=== PATIENT | female | born 1945 | race Caucasian/White ===

== ENCOUNTER 2019-07-15 12:13 | Inpatient (IN) | payer MEDICARE, BC ==
[2019-07-15] MEDS ORDERED: Sodium Chloride 0.9% 10 ML Syringe FLUSH PRN (14:07)
[2019-07-15] MEDS: cefTRIAXone 1 GM in Sodium Chloride 0.9% 50 ML IV SCH (14:21)
--- NOTE | 2019-07-15 14:29 | PCM.HP ---
H&P History of Present Illness - General Date of Service: 07/15/19 Admit Problem/Dx: Admission Diagnosis/Problem Admission Diagnosis/Problem Pneumonia Source of Information: Patient, Provider - History of Present Illness Initial Comments - Free Text/Narative: 74-year-old lady with a history of hypertension, dyslipidemia, rheumatoid arthritis, depression. Developed subjective fever, chills, nonproductive cough about a week ago. He was seen by Dr. Pradhan on 14 July and was noted to have atrial fibrillation with a rapid ventricular rate in the 110. Her propranolol 160 mg was changed to metoprolol XL 150 mg. That she took on the evening of 14 July. On the day of admission the patient followed up with her primary care physician. A chest x-ray showed left lower lobe infiltrate. The patient has been feeling tired, low oral intake. - Related Data Allergies/Adverse Reactions: Allergies Allergy/AdvReac Type Severity Reaction Status Date / Time metoclopramide [From Reglan] Allergy Cannot Verified 04/23/17 13:50 Remember Home Medications: Home Meds Cholecalciferol (Vitamin D3) [Vitamin D3] 2,000 units PO DAILY 04/23/17 [History ] Cranberry Fruit Extract [Cranberry] 200 mg PO DAILY 04/23/17 [History] FLUoxetine HCl [Fluoxetine HCl] 20 mg PO DAILY 04/23/17 [History] Multivitamin with Minerals [Hair, Skin and Nails] 1 tab PO DAILY 04/23/17 [ History] [place]arien-3 Fatty Acids/Fish Oil [Fish Oil 1,200 mg Softgel] 1,000 mg PO BID [History] Omeprazole 20 mg PO DAILY PRN 04/23/17 [History] Albuterol [Ventolin HFA] 2 puff INH Q6H PRN 07/15/19 [History] Alendronate Sodium [Fosamax] 70 mg PO WEEKLY 07/15/19 [History] Calcium Carbonate/Vitamin D3 [Calcium 500 + Vit D Caplet] 1 tab PO DAILY [History] Flaxseed Oil 1,000 mg PO BID 07/15/19 [History] Furosemide [Lasix] 20 mg PO DAILY 07/15/19 [History] Glucosamine/Chondro Edgar A/C/Mn [Glucosamine-Chondroitin Cap] 2 tab PO DAILY 07/15 [History] Levothyroxine [Synthroid] 88 mcg PO ACBREAKFAST 07/15/19 [History] Lisinopril [Zestril] 20 mg PO DAILY 07/15/19 [History] Lutein/Zeaxanthin [Lutein-Zeaxanthin 20-1 mg Sfgl] 1 tab PO DAILY 07/15/19 [ History] Metoprolol Succinate [Toprol XL 100mg] 150 mg PO DAILY 07/15/19 [History] Oxybutynin Chloride [Ditropan Xl] 10 mg PO DAILY PRN 07/15/19 [History] QUEtiapine [SEROquel] 50 mg PO BEDTIME 07/15/19 [History] Sodium Chloride/Aloe Vera [Saline Nasal Gel] 1 spray NASBOTH Q6H PRN 07/15/19 [ History] Past Medical History HEENT History: Reports: Hard of Hearing, Impaired Vision, Macular Degeneration Cardiovascular History: Reports: Afib, Hypertension Respiratory History: Reports: Pneumonia, Recurrent Gastrointestinal History: Reports: GERD [employer]GER History: Reports: Other OB/BYN History: hysterectomy Musculoskeletal History: Reports: Arthritis Neurological History: Reports: None Psychiatric History: Reports: Anxiety Endocrine/Metabolic History: Reports: Hypokalemia, Hypothyroidism, Obesity/BMI 30+ Immunologic History: Reports: None - Infectious Disease History Infectious Disease History: Reports: Chicken Pox, Influenza, Measles - Past Surgical History HEENT Surgical History: Reports: Cataract Surgery Cardiovascular Surgical History: Reports: None GI Surgical History: Reports: Bariatric Procedure, Cholecystectomy, Colonoscopy , EGD Endocrine Surgical History: Reports: None Neurological Surgical History: Reports: None Musculoskeletal Surgical History: Reports: None Social & Family History - Family History Cardiac: Reports: Other (See Below) Other Cardiac Family History: father had a heart attack Oncologic: Reports: Bone, Breast, Metastatic, Other (See Below) Other Oncologic Family History: brother had stomach cancer and sister had female organs and back - Tobacco Use Smoking Status *Q: Never Smoker Second Hand Smoke Exposure: No - Caffeine Use Caffeine Use: Reports: Soda - Recreational Drug Use Recreational Drug Use: No H&P Review of Systems - Review of Systems: Review Of Systems: See Below General: Reports: Fever, Chills, Malaise, Weakness Pulmonary: Reports: Cough. Denies: Shortness of Breath, Sputum, Hemoptysis Cardiovascular: Denies: Chest Pain, Edema Gastrointestinal: Denies: Abdominal Pain Psychiatric: Denies: Confusion Exam - Exam Exam: See Below - Vital Signs Vital Signs: Last Vital Signs Temp 97.6 F 07/15/19 12:31 Pulse 72 07/15/19 12:31 Resp 22 H 07/15/19 12:31 BP 103/76 07/15/19 12:31 Pulse Ox 96 07/15/19 12:31 Weight: 209 lb 9.6 oz - Exam General: Alert, Oriented Neck: Supple Lungs: Normal Respiratory Effort, Other (Decreased breath sounds left side) Cardiovascular: Irregular Rhythm GI/Abdominal Exam: Normal Bowel Sounds, Soft, Non-Tender Extremities: No Pedal Edema - Problem List (1) Left lower lobe pneumonia SNOMED Code(s): 088346310 ICD Code: J18.9 - PNEUMONIA, UNSPECIFIED ORGANISM Status: Acute Current Visit: Yes (2) Atrial fibrillation with rapid ventricular response SNOMED Code(s): 049331866910087 ICD Code: I48.91 - UNSPECIFIED ATRIAL FIBRILLATION Status: Acute Current Visit: Yes (3) Hypertension SNOMED Code(s): 52075184 ICD Code: I10 - ESSENTIAL (PRIMARY) HYPERTENSION Status: Acute Current Visit: Yes (4) Dyslipidemia SNOMED Code(s): 412744040 ICD Code: E78.5 - HYPERLIPIDEMIA, UNSPECIFIED Status: Acute Current Visit : Yes Problem List Initiated/Reviewed/Updated: Yes Orders Last 24hrs: Active Orders 24 hr Category Date Time Status Patient Status [ADT] Routine ADT 07/15/19 14:07 Ordered Antiembolic Devices [RC] PER UNIT ROUTINE Care 07/15/19 14:09 Ordered Oxygen Therapy [RC] PRN Care 07/15/19 14:07 Ordered Peripheral IV Care [RC] . DIRECTED Care 07/15/19 14:09 Ordered Telemetry Monitoring [Cardiac Monitoring] [RC] . Care 07/15/19 14:09 Ordered DIRECTED Up With Assistance [RC] ASDIRECTED Care 07/15/19 14:07 Ordered VTE/DVT Education [RC] PER UNIT ROUTINE Care 07/15/19 14:07 Ordered Vital Signs [RC] Q4H Care 07/15/19 14:07 Ordered Regular Diet [DIET] Diet 07/15/19 Dinner Ordered CULTURE BLOOD [BC] Stat Lab 07/15/19 14:03 Ordered CULTURE BLOOD [BC] Stat Lab 07/15/19 14:03 Ordered CULTURE SPUTUM + SMEAR [RM] Routine Lab 07/15/19 14:03 Ordered INFLUENZA A+B AG SCREEN [RM] Routine Lab 07/15/19 14:10 Ordered Apixaban [Eliquis] Med 07/15/19 21:00 Ordered 2.5 mg PO BID Azithromycin [Zithromax] 500 mg Med 07/15/19 14:15 Ordered Sodium Chloride 0.9% [Normal Saline] 250 ml IV Q24H FLUoxetine HCl [Fluoxetine HCl] Med 07/16/19 09:00 Ordered 20 mg PO DAILY Furosemide [Lasix] Med 07/16/19 09:00 Ordered 20 mg PO DAILY Levothyroxine [Synthroid] Med 07/16/19 06:00 Ordered 88 mcg PO ACBREAKFAST Metoprolol Succinate [Toprol XL 100mg] Med 07/15/19 21:00 Ordered 100 mg PO BID Multivitamin with Minerals [Hair, Skin and Nails] Med 07/16/19 09:00 Ordered 1 tab PO DAILY Omeprazole Med 07/16/19 09:00 Ordered 20 mg PO DAILY Potassium Chloride [Klor-Con 10] Med 07/15/19 14:30 Ordered 40 meq PO BIDMEALS QUEtiapine Med 07/15/19 21:00 Ordered 50 mg PO BEDTIME Sodium Chloride 0.9% [Saline Flush] Med 07/15/19 14:07 Ordered 10 ml FLUSH ASDIRECTED PRN cefTRIAXone [Rocephin] 1 gm Med 07/15/19 14:15 Ordered Sodium Chloride 0.9% [Normal Saline] 50 ml IV Q24H lisinopriL [Prinivil] Med 07/16/19 09:00 Ordered 20 mg PO DAILY Antiembolic Hose [OM.PC] Per Unit Routine Oth 07/15/19 14:08 Ordered Blood Culture x2 Reflex Set [OM.PC] Stat Oth 07/15/19 14:03 Ordered Peripheral IV Insertion Adult [OM.PC] Routine Oth 07/15/19 14:07 Ordered Resuscitation Status Routine Resus Stat 07/15/19 14:07 Ordered Medication Orders Apixaban (Eliquis) 2.5 mg PO BID [facility] Fluoxetine HCl (Prozac) 20 mg PO DAILY [facility] Furosemide (Lasix) 20 mg PO DAILY [facility] Azithromycin 500 mg/ Sodium (Chloride) 250 mls @ 250 mls/hr IV Q24H [facility] Ceftriaxone Sodium 1 gm/ (Sodium Chloride) 50 mls @ 50 mls/hr IV Q24H [facility] Last Admin: 07/15/19 14:21 Dose: 50 mls/hr Levothyroxine Sodium (Synthroid) 88 mcg PO ACBREAKFAST [facility] Lisinopril (Prinivil) 20 mg PO DAILY [facility] Metoprolol Succinate (Toprol Xl) 100 mg PO BID [facility] Multivitamins/Minerals (Vitamins And Minerals) 1 tab PO DAILY [facility] Omeprazole (Omeprazole) 20 mg PO ACBREAKFAST [facility] Potassium Chloride (Klor-Con 10) 40 meq PO BIDMEALS [facility] Quetiapine Fumarate (Seroquel) 50 mg PO BEDTIME [facility] Sodium Chloride (Saline Flush) 10 ml FLUSH ASDIRECTED PRN PRN Reason: Keep Vein Open Assessment/Plan Comment:: Laboratory studies were reviewed from [facility] Troponin was negative, INR 1.2 B UN 40, sodium 135, potassium 2.9, creatinine 1.3 which is up from 1.0 a month ago. White blood cell count 28, hemoglobin 14.7, platelet count 370 CXR: per report FINDINGS.Mild cardiomegaly is stable. Pulmonary vascularity is borderline elevated and similar. Infiltrate and/or atelectasis of the LEFT lower lobe is new since the prior study. This could represent pneumonia. Small LEFT pleural effusion is new. Mild atelectasis in the RIGHT infrahilar region is similar. Surgical changes of the LEFT upper quadrant. Prominence of the LEFT hilum may be due to lymphadenopathy. Follow-up to resolution is recommended. 74-year-old who presented with nonproductive cough, malaise, subjective fever. Was found to have left lower lobe infiltrate on chest x-ray. Atrial fibrillation on examination. Community-acquired pneumonia Left lower lobe infiltrate We'll obtain sputum culture Obtain blood culture Treat empirically with azithromycin and Rocephin Acute renal failure, hypokalemia Likely due to dehydration Give IV fluids and potassium supplement Atrial fibrillation, new onset with rapid ventricular rate The patient has been switched from her outpatient propranolol 160 mg to metoprolol XL 150 mg He took 1 dose last evening. Blood pressure is still high, heart rate is still high I we'll monitor the patient on telemetry Replace electrolytes Increase metoprolol 200 mg twice a day start anticoagulation with apixaban will need further cardiac evaluation when pulmonary status stabilized and pneumonia treated. 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
[2019-07-15] MEDS: Azithromycin 500 MG in Sodium Chloride 0.9% 250 ML IV SCH (14:58)
[2019-07-15] MEDS: Potassium Chloride 10 MEQ Tab.ER PO SCH ×2 (15:16→18:02)
[2019-07-15] MEDS: Metoprolol Succinate 50 MG Tab.ER PO SCH ×2 (19:19→21:13)
[2019-07-15] MEDS: Apixaban 5 MG Tab PO SCH (20:35)
[2019-07-15] MEDS: QUEtiapine 25 MG Tab PO SCH (20:37)
[2019-07-15] MEDS ORDERED: Metoprolol Tartrate 5 MG/5 ML SDV IVPUSH ONE (21:30)
[2019-07-16] MEDS: Omeprazole 20 MG Cap.CR PO SCH (05:45)
[2019-07-16] MEDS: Levothyroxine 88 MCG Tab PO SCH (05:45)
[2019-07-16] MEDS ORDERED: Digoxin 500 MCG/2 ML Amp IVPUSH ONE (07:13)
[2019-07-16 07:28] LABS: ANION GAP 14.3
--- NOTE | 2019-07-16 07:53 | PN ---
DATE: 07/16/2019 SUBJECTIVE: The patient is a 74-year-old lady who was admitted with left lower lobe pneumonia and new onset atrial fibrillation. This morning, the patient's heart rate is still moderately elevated at 120s and she is already on the maximum dose of metoprolol 100 mg twice a day, but otherwise the patient is feeling slightly better as compared to yesterday, and she denies any chest pain, shortness of breath, orthopnea, nor any other complaints. OBJECTIVE: Vital Signs: Blood pressure is 110/66, pulse of 133, respirations of 20, temperature of 97.3, saturation is 92% on room air. Heart: Irregular. Ventricular response slightly elevated. No gallops. No rubs. Lungs: Diminished breath sounds on both bases, but no significant crackles, no wheezing. Abdomen: Soft, nontender. Bowel sounds positive. Extremities: Negative for any significant pedal edema. MEDICATIONS: Reviewed. PLAN: We will continue with her IV antibiotics, Rocephin and Zithromax, and we will continue with apixaban, and I am going to give her a dose of digoxin 0.25 mg IV x1, and we will also continue with her metoprolol. CBC and basic metabolic panel ordered today, but results are still pending. We will also add TSH to her laboratory workup. [facility] /[id number]
[2019-07-16] MEDS: Apixaban 5 MG Tab PO SCH ×2 (08:08→21:00)
[2019-07-16] MEDS: Potassium Chloride 10 MEQ Tab.ER PO SCH ×2 (08:08→17:31)
[2019-07-16] MEDS: Furosemide 20 MG Tab PO SCH (08:08)
[2019-07-16] MEDS: Multivitamins, Therapeutic with Minerals Tab PO SCH (08:08)
[2019-07-16] MEDS: Sodium Chloride 0.9% 1,000 ML IV SCH ×2 (08:09→23:39)
[2019-07-16] MEDS ORDERED: FLUoxetine 10 MG Cap PO SCH (09:00)
[2019-07-16] MEDS: Metoprolol Succinate 50 MG Tab.ER PO SCH ×2 (09:21→20:59)
[2019-07-16] MEDS: Lisinopril 20 MG Tab PO SCH (09:21)
[2019-07-16] MEDS: cefTRIAXone 1 GM in Sodium Chloride 0.9% 50 ML IV SCH (15:05)
[2019-07-16] MEDS: Azithromycin 500 MG in Sodium Chloride 0.9% 250 ML IV SCH (16:07)
[2019-07-16] MEDS: QUEtiapine 25 MG Tab PO SCH (21:00)
[2019-07-17] MEDS: Omeprazole 20 MG Cap.CR PO SCH (06:12)
[2019-07-17] MEDS: Levothyroxine 88 MCG Tab PO SCH (06:12)
[2019-07-17] MEDS ORDERED: Sodium Chloride 0.9% 10 ML Syringe FLUSH PRN (09:04)
[2019-07-17] MEDS: Lisinopril 20 MG Tab PO SCH (09:05)
[2019-07-17] MEDS: Potassium Chloride 10 MEQ Tab.ER PO SCH ×2 (09:05→17:42)
[2019-07-17] MEDS: Furosemide 20 MG Tab PO SCH (09:05)
[2019-07-17] MEDS: Multivitamins, Therapeutic with Minerals Tab PO SCH (09:05)
[2019-07-17] MEDS: Apixaban 5 MG Tab PO SCH ×2 (09:06→21:07)
[2019-07-17] MEDS: Metoprolol Succinate 50 MG Tab.ER PO SCH ×2 (09:06→21:10)
[2019-07-17] MEDS: Digoxin 125 MCG Tab PO SCH (09:39)
--- NOTE | 2019-07-17 11:19 | PN ---
DATE: 07/17/2019 SUBJECTIVE: The patient has been doing well. So far, has not had any fever or chills, but she is still coughing, but she denies any chest pain, palpitation, orthopnea, PND, nor any other complaints and her appetite has been good. So far, blood culture has been negative, and telemetry, she remains in atrial fibrillation with rapid ventricular response (120s). Otherwise, no other complaints. LABORATORY DATA: Lab workup this morning: WBC is 17.8 (improving) and hemoglobin and hematocrit are within normal limits, platelet is 406. Chem-6: Potassium is 3.3, magnesium level is 1.8. TSH is 2.53, which is within normal limits. OBJECTIVE: Vital Signs: Blood pressure is 149/89, pulse of 117, respiration of 22, saturation is 96% on room air. Heart: Irregular, ventricular response, slightly elevated. Lungs: Equal bilaterally. No significant crackles. No wheezing. Abdomen: Soft and nontender. Bowel sounds positive. Extremities: Negative for any significant pedal edema. No calf tenderness. PLAN: We will continue with her IV antibiotics, that are ceftriaxone and azithromycin, and with regard to her atrial fibrillation with rapid ventricular response, I am going to continue with her metoprolol 100 mg p.o. b.i.d. (maximum dose). I am going to add digoxin 0.125 mg p.o. daily. I am also going to discontinue the IV fluids. We will also order for an echocardiogram and the rest of the management as necessary, and we will continue with the rest of her apixaban. [facility] /[id number]
[2019-07-17] MEDS: cefTRIAXone 1 GM in Sodium Chloride 0.9% 50 ML IV SCH (14:47)
[2019-07-17] MEDS: Azithromycin 500 MG in Sodium Chloride 0.9% 250 ML IV SCH (16:00)
[2019-07-17] MEDS: Diltiazem 120 MG Cap.CD PO SCH (17:43)
[2019-07-17] MEDS: FLUoxetine 10 MG Cap PO SCH (21:09)
[2019-07-17] MEDS: QUEtiapine 25 MG Tab PO SCH (21:10)
[2019-07-17] MEDS: Benzonatate 100 MG Cap PO PRN (22:57)
[2019-07-18] MEDS ORDERED: Digoxin 500 MCG/2 ML Amp IVPUSH ONE (02:13)
[2019-07-18] MEDS: Levothyroxine 88 MCG Tab PO SCH (05:32)
[2019-07-18] MEDS: Omeprazole 20 MG Cap.CR PO SCH (05:32)
[2019-07-18 07:07] LABS: ANION GAP 13.3; CHLORIDE,CL 109 mmol/L (101-111); SODIUM,NA 140 mmol/L (135-145)
[2019-07-18] MEDS: Potassium Chloride 10 MEQ Tab.ER PO SCH ×2 (08:43→17:39)
[2019-07-18] MEDS: Metoprolol Succinate 50 MG Tab.ER PO SCH ×2 (08:44→20:36)
[2019-07-18] MEDS: Furosemide 20 MG Tab PO SCH (08:44)
[2019-07-18] MEDS: Multivitamins, Therapeutic with Minerals Tab PO SCH (08:44)
[2019-07-18] MEDS: Diltiazem 120 MG Cap.CD PO SCH (08:44)
[2019-07-18] MEDS ORDERED: Diltiazem 120 MG Cap.CD PO ONE (08:45)
[2019-07-18] MEDS: Lisinopril 20 MG Tab PO SCH (08:45)
[2019-07-18] MEDS: Apixaban 5 MG Tab PO SCH ×2 (08:45→20:38)
[2019-07-18] MEDS: Digoxin 125 MCG Tab PO SCH (08:45)
--- NOTE | 2019-07-18 11:21 | PN ---
DATE: 07/18/2019 SUBJECTIVE: The patient's heart rate yesterday was still elevated despite the digoxin and Cardizem CD as well as metoprolol, and last night, we had to give an extra dose of IV digoxin to better control her heart rate, and this morning, the patient's heart rate is still mild to moderately elevated. The patient's blood pressure was also noted to be moderately elevated. The patient denies, though, any headache, chest pain, palpitations, shortness of breath, abdominal pain, or any other complaints, and overall she has been feeling good with respect to her pneumonia. LABORATORY DATA: Lab workup this morning: CBC; WBC is 14.6 (improving), hemoglobin and hematocrit are within normal limits, and platelet is within normal limits. Chem-6 is unremarkable. OBJECTIVE: Vital Signs: Blood pressure is 139/64, pulse of 114, respirations 20, saturations 93% on room air. Heart: irregular, ventricular response, slightly elevated. Telemetry is atrial fibrillation. Lungs: Equal bilaterally. No significant crackles. No wheezing. Abdomen: Soft and nontender. Bowel sounds positive. Extremities: Negative for any significant pedal edema. No calf tenderness. MEDICATIONS: Reviewed. PLAN: I am going to increase her diltiazem to 240 mg daily. We will continue with her metoprolol 100 mg b.i.d. and we will continue with her digoxin 0.125 mg daily. If her heart rate gets better controlled and she continues to do well, we will anticipate discharge in a.m., and we will have her follow up with [facility] in a week for a followup chest x-ray, CBC, and an EKG. [facility] /[id number] MTDD
[2019-07-18] MEDS: cefTRIAXone 1 GM in Sodium Chloride 0.9% 50 ML IV SCH (15:22)
[2019-07-18] MEDS: Azithromycin 500 MG in Sodium Chloride 0.9% 250 ML IV SCH (16:27)
[2019-07-18] MEDS: FLUoxetine 10 MG Cap PO SCH (20:36)
[2019-07-18] MEDS: Benzonatate 100 MG Cap PO PRN (20:37)
[2019-07-18] MEDS: QUEtiapine 25 MG Tab PO SCH (20:38)
[2019-07-19] MEDS: Omeprazole 20 MG Cap.CR PO SCH (05:45)
[2019-07-19] MEDS: Levothyroxine 88 MCG Tab PO SCH (05:46)
[2019-07-19] MEDS ORDERED: Diltiazem 240 MG Cap.ER PO SCH (09:00)
[2019-07-19] MEDS: Potassium Chloride 10 MEQ Tab.ER PO SCH (09:05)
[2019-07-19] MEDS: Apixaban 5 MG Tab PO SCH (09:06)
[2019-07-19] MEDS: Digoxin 125 MCG Tab PO SCH (09:07)
[2019-07-19] MEDS: Lisinopril 20 MG Tab PO SCH (09:08)
[2019-07-19] MEDS: Metoprolol Succinate 50 MG Tab.ER PO SCH (09:08)
[2019-07-19] MEDS: Furosemide 20 MG Tab PO SCH (09:08)
[2019-07-19] MEDS: Multivitamins, Therapeutic with Minerals Tab PO SCH (09:09)
[2019-07-19] MEDS: Benzonatate 100 MG Cap PO PRN (09:19)
--- NOTE | 2019-07-19 11:16 | PN ---
DATE: 07/19/2019 SUBJECTIVE: The patient is doing much better. The patient's heart rate is now within normal limits, but she remained in atrial fibrillation. The patient denies any chest pain, shortness of breath, abdominal pain, fever, chills, or any other complaints. The patient mentioned that she would like to go home today. OBJECTIVE: Vital Signs: Blood pressure is 164/99, pulse is 74, respirations 20, saturation is 96% on room air. Heart: Irregular. Ventricular response within normal limits. Lungs: Diminished breath sounds on left lower lung base, but no significant crackles. No wheezing. Abdomen: Obese, otherwise soft, nontender. Bowel sounds positive. Extremities: Negative for any pedal edema. No calf tenderness. PLAN: We will discharge the patient home today. We will continue with oral antibiotics for the next 1 week and we will continue with apixaban and we will continue the digoxin, diltiazem, and metoprolol, and we will have her follow up with Carlyn Mcneal who is her primary care provider in 1 week with a followup chest x-ray, a digoxin level, and basic metabolic panel. [facility] /[id number]
--- NOTE | 2019-07-19 12:55 | DISCH ---
FINAL DIAGNOSES: 1. Left lobe pneumonia. 2. Atrial fibrillation with rapid ventricular response (new onset). 3. Hypokalemia. 4. Hypertension. BRIEF HISTORY OF PRESENT ILLNESS: Please see H and P. For pertinent lab, x- ray, and other tests, please see H and P. Echocardiogram ordered, results are still pending. HOSPITAL COURSE: The patient was admitted to General Medicine floor. She was started on azithromycin IV as well as ceftriaxone IV. She was placed on telemetry. The patient's rhythm remained in atrial fibrillation with rapid ventricular response, and because of this, her metoprolol was increased to maximum dose of 100 mg twice a day, but her heart rate was still running elevated and so digoxin was given and eventually diltiazem was also added to the regimen, which controlled her ventricular response. Potassium was also repleted and followup CBC and basic metabolic panel showed improvement of the WBC as well as correction of potassium and the rest of the hospital course was uncomplicated, and she was discharged. CONDITION ON DISCHARGE: Improved. DISCHARGE INSTRUCTION: Diet, regular. We will continue with the patient on Augmentin 875 b.i.d. for the next 1 week. We will also continue with her digoxin, diltiazem, metoprolol, levothyroxine, and the rest of her home medications. She is going to follow up with Carlyn Mcneal in 1 week with a followup chest x-ray, CBC, basic metabolic panel, and digoxin level. [facility] /[id number]
== END 2019-07-19 10:10 | disposition home or self-care (01) | DRG 194 ==
LOC: DL.MS 12:19 → UNDOADMIN 12:19 → DL.MS 14:07
PROVIDERS: ADMIT Internal Medicine; ATTEND Internal Medicine
DX: J18.1 Lobar pneumonia, unspecified organism (principal); N17.9 Acute kidney failure, unspecified; Z68.41 Body mass index [BMI] 40.0-44.9, adult; E87.6 Hypokalemia; I48.91 Unspecified atrial fibrillation; E86.0 Dehydration; I10 Essential (primary) hypertension; K21.9 Gastro-esophageal reflux disease without esophagitis; F41.9 Anxiety disorder, unspecified; E66.9 Obesity, unspecified; Z90.710 Acquired absence of both cervix and uterus; Z79.890 Hormone replacement therapy; Z79.899 Other long term (current) drug therapy
CPT/HCPCS: 36415; 80048; 83735; 84443; 85025; 87040; 87070; 87205; 87804; 93306; A9270-GY; J0456; J0696; J1160; J3490; J7030; J7050